=== PATIENT | male | born 1955 | race Caucasian/White ===

== ENCOUNTER 2024-07-28 12:46 | Day surgery (SDC) | payer MEDICARE ==
[2024-07-25 15:30] VITALS: BMI 30.2
[2024-07-28] MEDS: LACTATED RINGERS 1,000 ML IV SCH (14:06)
[2024-07-28 14:09] VITALS: TEMP 97.3
[2024-07-28] MEDS: IV FLUID CONTINUATION 1,000 ML IV ONE (14:33)
[2024-07-28] MEDS ORDERED: LIDOCAINE 1% INJ 10MG/ML (20 ML MDV) ONE (14:33)
[2024-07-28] MEDS ORDERED: PROPOFOL 10 MG/ML 20 ML VIAL IV ONE (14:33)
--- NOTE | 2024-07-28 14:58 | P.PCN ---
Date of Procedure: 07/28/24 Procedure(s) Performed: BRIEF HISTORY: Patient is a 69-year-old pleasant white male scheduled for an elective colonoscopy as a part of screening for colon cancer and family history of colon cancer. His father was diagnosed with colon cancer at age 69 PROCEDURE PERFORMED: Colonoscopy snare polypectomy and cold biopsy. PREOPERATIVE DIAGNOSIS: Screening for colon cancer and family history of colon cancer. IV sedation per Anesthesia. PROCEDURE: After informed consent was obtained, the patient, was brought into the endoscopy unit. IV sedation was administered by Anesthesia under continuous monitoring. Digital rectal examination was normal. Initially the Olympus CF-160 flexible video colonoscope was then inserted in the rectum, gradually advanced into the cecum without any difficulty. Careful examination was performed as the scope was gradually being withdrawn. Ileocecal valve and the appendiceal orifice were visualized and appeared normal. Prep was excellent. Mucosa of the cecum 3 mm polyp that was removed by cold biopsy. He descending colon there was a 1 cm polyp removed by snare polypectomy. In the hepatic flexure there was a 3 mm and a 4 mm polyp removed by cold biopsy., ascending colon, transverse colon, descending colon, sigmoid colon, and rectum appeared normal. Retroflexion was performed in the rectum and no lesions were seen. The patient tolerated the procedure well. IMPRESSION: 1 cm ascending colon polyp status post snare polypectomy 3 mm millimeter cecal polyp status post cold biopsy 3 mm and 4 mm hepatic rectal polyp status post cold biopsy RECOMMENDATIONS: Findings of this examination were discussed with the patient as well as his family. He was advised to follow-up with the biopsy results. He is a biopsy reveals adenoma he can have repeat colonoscopy in 3 years. 69
[2024-07-28 15:27] VITALS: BP 128/78; PULSE 66; RESP 20
== END 2024-07-28 15:47 | disposition home or self-care (01) ==
LOC: ORWHC2ENDO 12:46
PROVIDERS: ATTEND Internal Medicine Gastroenterology
DX: Z12.11 Encounter for screening for malignant neoplasm of colon (principal); D12.0 Benign neoplasm of cecum; D12.2 Benign neoplasm of ascending colon; D12.3 Benign neoplasm of transverse colon; I10 Essential (primary) hypertension; Z80.0 Family history of malignant neoplasm of digestive organs; Z87.442 Personal history of urinary calculi
CPT/HCPCS: 88305; 45380; 45385; J2003; J2704